=== PATIENT | male | born 1995 | race Caucasian/White ===

== ENCOUNTER 2024-01-04 13:14 | Emergency (ER) | payer OTHER ==
[2024-01-04 13:32] VITALS: BP 106/71; PULSE 84; RESP 20; TEMP 98.4; BMI 29.2
[2024-01-04] MEDS ORDERED: KETOROLAC TROMETHAMINE 30 MG/1 ML VIAL ONE (14:32)
[2024-01-04] MEDS ORDERED: LIDOCAINE 4% PATCH TP ONE (14:32)
[2024-01-04] MEDS: LIDOCAINE 5% TOPICAL PATCH TP ONE (14:36)
[2024-01-04] MEDS: KETOROLAC TROMETHAMINE 30 MG/1 ML VIAL IM ONE (14:37)
[2024-01-04] MEDS ORDERED: LIDOCAINE PATCH REMOVAL MC ONE (22:00)
== END 2024-01-04 16:23 | disposition home or self-care (01) ==
LOC: JER 13:14
PROC: 3E0133Z Introduction of Anti-inflammatory into Subcutaneous Tissue, Percutaneous Approach (ICD-10-PCS; principal; 2024-01-04)
DX: S46.911A Strain of unspecified muscle, fascia and tendon at shoulder and upper arm level, right arm, initial encounter (principal); S80.211A Abrasion, right knee, initial encounter; S80.212A Abrasion, left knee, initial encounter; R07.89 Other chest pain; M25.452 Effusion, left hip; V28.09XA Other motorcycle driver injured in noncollision transport accident in nontraffic accident, initial encounter
CPT/HCPCS: 71046-TC-FY; 71101-TC-RT-FY; 73000-TC-RT-FY; 73030-TC-RT-FY; 73060-TC-RT-FY; 96372; 99284-25